=== PATIENT | female | born 1970 | race Caucasian/White ===

== ENCOUNTER 2020-08-03 09:15 | Emergency (ER) | payer OTHER ==
[~2020-08-03] VITALS: Ht 172.7 cm; Wt 68.0 kg
[2020-08-03 09:55] LABS: BASOPHILS ABSOLUTE AUTO 0.05 K/mm3 (0.00-0.23); BASOPHILS PERCENT AUTO 1 % (0-2); EOSINOPHILS ABSOLUTE AUTO 0.09 K/mm3 (0.00-0.68); EOSINOPHILS PERCENT AUTO 1 % (0-6); Hematocrit 42.3 % (33.0-51.0); Hemoglobin 13.9 g/dL (11.5-16.0); IMMATURE GRAN ABSOLUTE AUTO 0.03 K/mm3 (0.00-0.10); IMMATURE GRAN PERCENT AUTO 0 % (0-1); LYMPHOCYTES ABSOLUTE AUTO 1.43 K/mm3 (0.84-5.20); LYMPHOCYTES PERCENT AUTO 13 % (21-46); MONOCYTES PERCENT AUTO 8 % (4-13); Mean Corpuscular HGB 32.5 pg (26.0-34.0); Mean Corpuscular HGB Conc 32.9 g/dL (31.5-36.5); Mean Corpuscular Volume 99 fL (80-100); Mean Platelet Volume 9.2 fL (9.1-12.4); NEUTROPHILS ABSOLUTE AUTO 8.48 K/mm3 (1.96-9.15); NEUTROPHILS PERCENT AUTO 77 % (41-73); Platelet Count 291 K/mm3 (150-400); RDW Coefficient Variation 12.6 % (11.7-14.2); RDW Standard Deviation 45.7 fL (35.1-46.3); Red Blood Cell Count 4.28 M/mm3 (3.80-5.20); Source, Urine Clean Catch; White Blood Cell Count 10.98 K/mm3 (4.00-11.30)
[2020-08-03 10:04] LABS: Bilirubin, Urine Neg (Neg); Blood, Urine 1+ (Neg); Glucose Qualitative, Urine Neg (Neg); Ketones, Urine 2+ (Neg); Leukocyte Esterase, Urine 2+ (Neg); Nitrite, Urine Neg (Neg); Protein, Urine Neg (Neg); Specific Gravity, Urine 1.015 (1.003-1.022); Urobilinogen, Urine NORM (Normal)
[2020-08-03 10:18] LABS: Alanine Aminotransfer (ALT/SGP 24 U/L (12-78); Albumin, Blood 3.9 g/dL (3.4-5.0); Albumin/Globulin Ratio 0.9 (0.8-1.8); Alk Phos 57 U/L (50-136); Anion Gap 6 mmol/L (6-16); Aspartate Aminotrans (AST/SGOT 21 U/L (12-37); Bilirubin, Total 0.7 mg/dL (0.1-1.0); Blood Urea Nitrogen 9 mg/dL (8-24); Bun/Creatinine Ratio 13.5 (12.0-20.0); CO2, Blood 30 mmol/L (21-32); Calcium, Blood 9.8 mg/dL (8.5-10.1); Chloride, Blood 106 mmol/L (98-108); Creatinine, Blood 0.67 mg/dL (0.40-1.00); Globulin, Blood 4.2 g/dL (2.2-4.0); Glomerular Filtration Rate >60 (60-); Glucose, Blood 97 mg/dL (70-99); Potassium, Blood 3.9 mmol/L (3.5-5.5); Sodium, Blood 142 mmol/L (136-145); Total Protein, Blood 8.1 g/dL (6.4-8.2)
[2020-08-03 10:19] LABS: Appearance, Urine Hazy (Clear); Color, Urine Yellow (P-Yellow)
[2020-08-03 10:22] LABS: Amorphous Light (0-Heavy); Bacteria Mod /hpf; Squamous Epithelial Cells Mod /hpf (Few)
[2020-08-03] MEDS ORDERED: Percocet 5-3251 EACH PO (14:05)
[2020-08-03 14:23] LABS: Carcinoembryonic Antigen 0.9 ng/mL (0.0-3.0)
[2020-08-03 14:24] LABS: Cancer Antigen 19-9 <2.0 U/mL (2.0-37.0)
== END 2020-08-03 14:35 | disposition home or self-care (01) ==
LOC: ER 09:15
PROVIDERS: Emergency Medicine
DX: N83.201 Unspecified ovarian cyst, right side (principal)
CPT/HCPCS: 74177; 76830; 76856; 80053; 81001; 82378; 83690; 85025; 86301; 86304; 87086; 96374-59; 96375; 99284-25; J2405; J3010; Q9967

== ENCOUNTER 2020-10-07 08:25 | Day surgery (SDC) | payer OTHER ==
[~2020-10-07] VITALS: Ht 172.7 cm; Wt 64.6 kg
[~2020-10-07 08:25] MED LIST: Percocet 5-3251 EACH PO
--- NOTE | 2020-10-07 09:39 | NUR ---
Ambulatory in Day Surgery History, Chart, Medications and Allergies reviewed before start of procedure. Lungs clear T/O to Auscultation. Patient confirms NPO status and agrees with scheduled surgery. Pre-Op teaching done. Pt verbalizes understanding. Patient States Post-Procedure ride home has been arranged.
--- NOTE | 2020-10-07 11:07 | NUR ---
10/07/20 1107 Giorgi Felder NO ANTIBIOTICS REQUIRED
--- NOTE | 2020-10-07 12:11 | NUR ---
Dressing to procedure site clean, dry, intact with no visible drainage, swelling, erythema or bruising noted.
--- NOTE | 2020-10-07 12:46 | NUR ---
ON INCISION RE-ASSESMENT, UMBILICAL INCISION HAS INCREASED BRUISING NOTED. PRESSURE DRESSING APPLIED TO SITE. WILL RE-ASSESS. PT REPORTS PAIN LEVEL A "3/10" p AMBULATION.
--- NOTE | 2020-10-07 13:40 | NUR ---
Patient up to Ambulate independently. Gait steady. Discharge instructions reviewed with patient. Patient verbalizes understanding. Copy given to patient to take home. Discharged via wheelchair to private car for ride home.
== END 2020-10-07 22:50 | disposition home or self-care (01) ==
LOC: ORSCMMR 08:25 → ORD 08:25
PROVIDERS: Obstetrics & Gynecology
PROC: 0UT74ZZ Resection of Bilateral Fallopian Tubes, Percutaneous Endoscopic Approach (ICD-10-PCS; principal; 2020-10-07 10:00)
PROC: 0UT04ZZ Resection of Right Ovary, Percutaneous Endoscopic Approach (ICD-10-PCS; principal; 2020-10-07 10:00)
DX: D27.0 Benign neoplasm of right ovary (principal)
CPT/HCPCS: 86850; 86900; 86901; 88108; 88307; J0171; J1100; J1885; J2250; J2405; J2704; J3010; J7120

== ENCOUNTER 2023-10-06 11:00 | Day surgery (SDC) | payer OTHER ==
[~2023-10-06] VITALS: Ht 172.7 cm; Wt 63.1 kg
[2023-10-06] VITALS (10 sets, daily range): BP systolic 106–122; BP diastolic 70–85
--- NOTE | 2023-10-06 11:42 | NUR ---
Ambulatory in Day Surgery History, Chart, Medications and Allergies reviewed before start of procedure. Pre-Op teaching done. Pt verbalizes understanding. Patient States Post-Procedure ride home has been arranged.
--- NOTE | 2023-10-06 17:09 | NUR ---
Discharge instructions reviewed with patient. Patient verbalizes understanding. Copy given to patient to take home. Dressing to procedure site clean, dry, intact with no visible drainage, swelling, erythema or bruising noted. Patient States Post-Procedure ride home has been arranged-PT FRIEND GIGI IS RIDE HOME. RX FOR OXYCODONE TAKEN TO [facility] BY PT FRIEND GIGI.
--- NOTE | 2023-10-07 10:46 | NUR ---
10/07/23 1046 Maru Kramer VERIFICATIONS: EDIT CHART.
== END 2023-10-06 17:25 | disposition home or self-care (01) ==
LOC: ORSCMMR 11:00
PROVIDERS: Orthopaedic Surgery Sports Medicine
PROC: 0PSJ04Z Reposition Left Radius with Internal Fixation Device, Open Approach (ICD-10-PCS; principal; 2023-10-06 12:30)
DX: S52.572A Other intraarticular fracture of lower end of left radius, initial encounter for closed fracture (principal); W18.30XA Fall on same level, unspecified, initial encounter; Y92.000 Kitchen of unspecified non-institutional (private) residence as the place of occurrence of the external cause
CPT/HCPCS: 73110; A9270; C1713; J0171; J0690; J1100; J2250; J2405; J2704; J3010; J7120